=== PATIENT | male | born 1935 | race Two or more races ===

== ENCOUNTER 2019-01-30 11:51 | Emergency (ER) | payer OTHER, BC ==
[~2019-01-30] VITALS: Ht 167.6 cm; Wt 92.5 kg
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
--- NOTE | 2019-01-30 12:22 | NUR ---
DR CASH AT BEDSIDE
[2019-01-30] MEDS ORDERED: ACETAMINOPHEN ES 500 MG TABLET ONE (12:26)
--- NOTE | 2019-01-30 12:26 | NUR ---
RECEIVED VERBAL ORDER FROM DR CASH OF TYLENOL 1000MG PO.
[2019-01-30] MEDS ORDERED: ACETAMINOPHEN ES 500 MG TABLET PO ONE (13:00)
--- NOTE | 2019-01-30 14:06 | NUR ---
PT IN BED AWAKE, HOOKED TO MONITOR, VSS, WILL CONTINUE TO MONITOR
--- NOTE | 2019-01-30 16:17 | NUR ---
PT IN BED, AWAKE, VSS, HOOKED TO MONITOR.
--- NOTE | 2019-01-30 17:12 | NUR ---
PT IN BED, AWAKE, VSS, HOOKED TO MONITOR. KEPT SAFE AND COMFORTABLE.
--- NOTE | 2019-01-30 18:02 | NUR ---
Patient discharged to home in stable condition. Written and verbal after care instructions given. Patient verbalizes understanding of instruction.
[2019-01-30 18:06] VITALS: BP 148/65
== END 2019-01-30 18:06 | disposition home or self-care (01) ==
LOC: ER 12:00
DX: S13.4XXA Sprain of ligaments of cervical spine, initial encounter (principal); S70.02XA Contusion of left hip, initial encounter; Z96.649 Presence of unspecified artificial hip joint; V49.49XA Driver injured in collision with other motor vehicles in traffic accident, initial encounter; Y93.89 Activity, other specified; Y92.413 State road as the place of occurrence of the external cause; Y99.8 Other external cause status
CPT/HCPCS: 72050-TC; 72192-TC; 73502